=== PATIENT | male | born 1950 | race Caucasian/White ===

== ENCOUNTER 2025-02-05 09:17 | Emergency (ER) | payer MEDICARE, SELFPAY ==
[2025-02-05 09:32] VITALS: BP 156/72; PULSE 87; RESP 20; TEMP 35.9; O2SAT 93
--- NOTE | 2025-02-05 10:00 | RT.EKG_ITS ---
APPROVED REPORT Exam: Resting ECG Reason for Exam: SOB Patient Location: E HR:69 bpm ECG Measurements Heart Rate 69 AXIS OK 175 P 59 QRSd 76 QRS 53 QT 381 T 46 QTc 407 Conclusion Unknown rhythm, irregular rate...V-rate 57- 94, variation>10% Probable left atrial enlargement...P >50mS, <-0.10mV V1 No Occlusion OR
[2025-02-05 10:28] LABS: BE (Venous) 3 mmol/L (-2-3); HCO3 (Venous) 28 mmol/L (23-28); O2 Sat (Venous) 66 %; TCO2 (Venous) 25 mmol/L (24-29); pCO2 (Venous) 47 mmHg (41-51); pO2 (Venous) 33 mmHg
[2025-02-05 10:29] LABS: Abs Immature Grans 0.04 10^3/uL (0.0-0.06); HCT 47.8 % (40.0-50.0); HGB 16.2 g/dL (13.5-17.5); Immature Grans % 0.4 %; MCH 30.6 pg (27.0-33.0); MCHC 33.9 % (32.0-36.0); MCV 90 fL (80-95); MPV 10.1 fL (8.0-11.0); Platelet Count 194 10^3/uL (130-400); RBC 5.29 10^6/uL (4.36-5.78); RDW 13.3 % (11.8-14.1); RDW-SD 44.3 fL; WBC 9.34 10^3/uL (4.4-10.8)
[2025-02-05] MEDS: Albuterol/Ipratropium 3 ML UPD VIAL UPD (10:30)
[2025-02-05 10:38] LABS: COVID-19 PCR Negative (Negative); RSV PCR Negative (Negative)
[2025-02-05 10:55] LABS: ALT 19 U/L (16-63); AST 19 U/L (15-37); Albumin 3.6 g/dL (3.4-5.0); Alkaline Phosphatase 129 U/L (46-116); Anion Gap 8.1 mmol/L (3-11); BUN 13 mg/dL (7-18); Bilirubin, Total 0.9 mg/dL (0.2-1.0); CO2 28.9 mmol/L (21.0-32.0); Calcium 9.1 mg/dL (8.5-10.1); Chloride 98 mmol/L (98-107); Estimated GFR 62.29 (mL/min/1.73m2); Glucose 101 mg/dL (74-106); Lipase 29 U/L (<78); Magnesium 2.3 mg/dL (1.8-2.4); Potassium 4.3 mmol/L (3.5-5.1); Sodium 135 mmol/L (136-145); Total Protein 8.2 g/dL (6.4-8.2)
[2025-02-05 11:00] LABS: NT-proBNP 183 pg/mL (<300); Troponin I 8 ng/L (<or=76)
[2025-02-05 11:02] LABS: D-Dimer 896 ng/mlFEU (<500)
--- NOTE | 2025-02-05 11:26 | W.ED.GENAD ---
Discharge Plan Disposition Patient Disposition: Home Condition: Stable Discharge Details Clinical Impression: Shortness of breath Primary Care Provider: Unknown,Unknown ED Provider: Jesus Duke Home Meds and New Rx's Prescriptions: New prednisone 20 mg tablet 40 mg PO DAILY 5 Days Qty: 10 0RF azithromycin 250 mg tablet See Rx Instructions .ROUTE .COMPLEX Qty: 6 0RF Rx Instructions: For 250 mg dose pack: take 500 mg today (day 1), then 250 mg for 4 days (days 2-5) albuterol sulfate [Ventolin HFA] 90 mcg/actuation HFA aerosol inhaler 2 puff inhalation QID PRNQty: 6.7 0RF Discharge Instructions Instructions: Azithromycin (Systemic), Albuterol, Prednisone, Shortness of Breath, Adult ED Additional Instructions: You were seen in the emergency department for your progressive shortness of breath over many months, have a long-term history of smoking, you likely have an element of COPD that is undiagnosed. I am referring you to establish primary care. I have sent in prescriptions for an albuterol inhaler as well as a Z-Roman for antibiotics to treat any walking pneumonia or other similar bacterial pathology as well as a prednisone burst which should help with any inflammation in the lungs. Please follow-up with establishing primary care, he had some incidental findings of some liver cysts and adrenal nodules that need nonemergent MRI and follow-up. Referrals: [facility] [Provider Group] [facility] [Provider Group] Discharge Data Discharge Date/Time-TO BE ENTERED AT DEPARTURE: 02/05/25 13:49 HPI General Date/Time Provider Initiated Documentation: 02/05/25 09:28. HPI Narrative: 75 year-old male presents to ED today by POV/ambulating with a chief complaint of chronic cough, congestion with onset earlier this spring for months. Quality described as thought it was his normal seasonal allergies, but just hasn't gotten better- endorses thick yellow mucuous in the mornings, and shortness of breath with strenuous activities, no radiation to chest pain, nausea, vomiting, fever, bowel/urinary changes. Severity is described as mild to moderate. Palliating factors include nothing specific attempted. Provoking factors include nothing specific. Events leading up to the incident/Associated Symptoms: Patient has custodial smoking history, does not regularly go to the doctor. Patient not anticoagulated. Related Data Home Medications ?Medication ?Instructions ?Recorded ?Confirmed albuterol sulfate 90 mcg/actuation 2 puff inhalation QID PRN #6.7 02/05/25 aerosol inhaler (Ventolin HFA) grams azithromycin 250 mg tablet See Rx Instructions PO .COMPLEX #6 02/05/25 tabs prednisone 20 mg tablet 40 mg (2 x 20 mg) PO DAILY 5 days 02/05/25 #10 tabs Previous Rx's ?Medication ?Instructions ?Recorded albuterol sulfate 90 mcg/actuation 2 puff inhalation QID PRN #6.7 02/05/25 aerosol inhaler (Ventolin HFA) grams azithromycin 250 mg tablet See Rx Instructions PO .COMPLEX #6 02/05/25 tabs prednisone 20 mg tablet 40 mg (2 x 20 mg) PO DAILY 5 days 02/05/25 #10 tabs Allergies Allergy/AdvReac Type Severity Reaction Status Date / Time No Known Allergies Allergy Unverified 02/05/25 09:34 General Stated Complaint: SOB PINKY: 3 Review of Systems All systems reviewed & are unremarkable except as noted in HPI and below Exam Narrative Exam Narrative: GENERAL APPEARANCE: Well-nourished, non-toxic, awake and alert, atraumatic, no acute distress. SKIN: Warm, pink, dry, intact, without rashes/lesions/ulcerations. HEAD: Normocephalic, atraumatic, normal hair distribution for gender/age. EYES: Normal conjunctiva, no exudates on lids/lashes. ENT: Nares patent, no circumoral cyanosis, no facial swelling NECK: Supple, trachea midline, painless cervical ROM. LUNGS/CHEST: Lungs CTA bilaterally- no expiratory wheezing, non-labored respirations, increased A/P diameter, symmetrical expansion, no chest wall deformity HEART (CV/PV): Regular rate and rhythm without murmur, no peripheral edema, no JVD. ABDOMEN: Soft, non-distended, no guarding, nontender. MSK: Normal ROM, no swelling/deformity to bilateral UEs or LEs, moving all extremities without weakness, no cyanosis, spine midline without tenderness, normal curvature. NEURO: Mental Status AAOx4 - alert to person, place, time, events No facial droop, no forehead involvement. Motor: No focal weakness - strength 5/5 in bilateral UEs and LEs, proximal and distal, symmetric. Sensory: sensation intact to light touch globally. Gait normal: patient ambulated without ataxia into ED room. PSYCH: euthymic, cooperative, pleasant, appropriate speech Course Vital Signs Vital signs: Vital Signs Temperature 35.9 C L 02/05/25 09:32 Pulse 87 02/05/25 09:32 Respiratory Rate 20 02/05/25 09:32 Blood Pressure 156/72 H 02/05/25 09:32 Pulse Oximetry 93 02/05/25 09:32 Temperature 35.9 C L 02/05/25 09:32 Temperature Source Tympanic 02/05/25 09:32 Pulse 87 02/05/25 09:32 Respiratory Rate 20 02/05/25 09:32 Blood Pressure 156/72 H 02/05/25 09:32 Blood Pressure Position Sitting 02/05/25 09:32 Pulse Oximetry 93 02/05/25 09:32 Oxygen Delivery Method Room Air 02/05/25 09:32 Oxygen Flow Rate 0 02/05/25 09:32 Pain Level 0 02/05/25 09:32 Lab/Test Results Lab/Test Results: Laboratory Tests Range/Units 02/05/25 02/05/25 10:00 10:20 WBC (4.4-10.8) 10^3/uL 9.34 RBC (4.36-5.78) 10^6/uL 5.29 Hgb (13.5-17.5) g/dL 16.2 Hct (40.0-50.0) % 47.8 MCV (80-95) fL 90 MCH (27.0-33.0) pg 30.6 MCHC (32.0-36.0) % 33.9 RDW (11.8-14.1) % 13.3 Plt Count (130-400) 10^3/uL 194 MPV (8.0-11.0) fL 10.1 Immature Gran % % 0.4 Neutrophils % % 70.6 Lymphocytes % % 16.4 Monocytes % % 11.7 Eosinophils % % 0.2 Basophils % % 0.7 Nucleated RBC % (0.0-0.3) % 0.0 Absolute Neutrophils (1.2-6.7) 10^3/uL 6.59 Absolute Lymphocytes (1.2-3.4) 10^3/uL 1.53 Absolute Monocytes (0.1-0.8) 10^3/uL 1.09 H Absolute Eosinophils (0.0-0.7) 10^3/uL 0.02 Absolute Basophils (0.0-0.2) 10^3/uL 0.07 D-Dimer (<500) ng/mlFEU 896 H VBG pH (7.31-7.41) 7.38 VBG pCO2 (41-51) mmHg 47 VBG pO2 mmHg 33 VBG HCO3 (23-28) mmol/L 28 VBG Total CO2 (24-29) mmol/L 25 VBG O2 Saturation % 66 VBG Base Excess (-2-3) mmol/L 3 VBG Lactate (<or=2.0) mmol/L 1.4 Sodium (136-145) mmol/L 135 L Potassium (3.5-5.1) mmol/L 4.3 Chloride (98-107) mmol/L 98 Carbon Dioxide (21.0-32.0) mmol/L 28.9 Anion Gap (3-11) mmol/L 8.1 BUN (7-18) mg/dL 13 Creatinine (0.70-1.30) mg/dL 1.2 Est GFR (CKD-EPI 2020) (mL/min/1.73m2) 62.29 Glucose (74-106) mg/dL 101 Calcium (8.5-10.1) mg/dL 9.1 Magnesium (1.8-2.4) mg/dL 2.3 Total Bilirubin (0.2-1.0) mg/dL 0.9 AST (15-37) U/L 19 ALT (16-63) U/L 19 Alkaline Phosphatase (46-116) U/L 129 H Troponin I (<or=76) ng/L 8 NT-Pro-B Natriuret Pep (<300) pg/mL 183 Total Protein (6.4-8.2) g/dL 8.2 Albumin (3.4-5.0) g/dL 3.6 Lipase (<78) U/L 29 COVID-19 Source Nasopharynx SARS-CoV-2 (PCR) (Negative) Negative Influenza Type A (PCR) (Negative) Negative Influenza Type B (PCR) (Negative) Negative RSV (PCR) (Negative) Negative Medical Decision Making This dictation utilizes [id number] dictation software and may contain unedited grammatical errors. 75 year-old male presents to ED today by POV/ambulating with a chief complaint of chronic cough, congestion with onset earlier this spring for months. Quality described as thought it was his normal seasonal allergies, but just hasn't gotten better- endorses thick yellow mucuous in the mornings, and shortness of breath with strenuous activities, no radiation to chest pain, nausea, vomiting, fever, bowel/urinary changes. Severity is described as mild to moderate. Palliating factors include nothing specific attempted. Provoking factors include nothing specific. Events leading up to the incident/Associated Symptoms: Patient has custodial smoking history, does not regularly go to the doctor. Patients' medical history: Denies any major medical history. Family and social history: Long-term heavy smoker, denies IVDU, eats a normal diet. Pertinent exam findings / vital signs include lungs CTA, no expiratory wheezes, no respiratory distress, benign abdomen, neuro intact, nontoxic and afebrile. Differential / pathologies of concern include undiagnosed COPD, lung mass, PE, ACS less likely, PNA. Diagnostic studies of: - CBC, CMP, D-dimer, VBG, lactate, magnesium, BNP, serial troponins, lipase, respiratory PCR swab, CTA chest PE study, EKG. - CBC shows no acute abnormality - D-dimer 900 - VBG unremarkable - Lactate 1.4 - CMP without actionable abnormality - Serial troponins negative - BNP within normal limits - Lipase negative - Respiratory PCR swab negative - CTA chest PE study finds only incidental findings of adrenal nodules and hypodensities in the liver, I did set the patient up with PCP referral for these incidental findings - EKG shows sinus arrhythmia with P waves followed by narrow complex QRS with normal axis, no ST elevations or reciprocal depressions, no T wave abnormalities, normal intervals Interventions of: - DuoNeb treatment with significant improvement, inhaler to go home with as well as Rx for prednisone and azithromycin for empiric longstanding walking pneumonia in the setting of likely undiagnosed COPD. ED Course/Assessment/Plan: 75-year-old male with long-term smoking history presents with chronic cough, has not no treatment for months, improved with a DuoNeb likely has COPD to some extent with his long-term smoking history, I did provide him with prednisone and azithromycin to treat any walking pneumonia likely lingering, he is not in any respiratory distress he had incidental findings on CT which I referred him to PCP via referral list to establish care and surveilled these incidental findings. Findings not consistent with pneumonia, respiratory distress, ACS, sepsis, PE. Disposition of Shortness of Breath. Patient verbalized understanding of the plan and return to ED criteria and engaged in shared decision making. Medical Records Medical records reviewed: Yes I reviewed the patient's medical records. Imaging Data Radiologic Study: Attestation: I personally reviewed and interpreted this imaging study as follows: Imaging: CT Scan Radiologist's impression: EXAM: CT CHEST PE CTA CLINICAL HISTORY: elev d-dimer, SOB. TECHNIQUE: Imaging Protocol: Axial CT angiography was performed with multi-slice acquisition and multi-planar and/or 3D reconstructions. Lung Computer Aided Detection (CAD) was utilized. CONTRAST MATERIAL: Intravenous: Omnipaque 350 contrast volume:70 mL COMPARISON: No exams were available for comparison FINDINGS: Tracheobronchial tree: Patent where visualized. No bronchiectasis. There is mild bronchial wall thickening. Pulmonary parenchyma: Moderate centrilobular emphysematous changes are present. There are few calcified granuloma present. There are no focal consolidating infiltrates present. Pulmonary Arteries: No evidence of filling defect to suggest pulmonary emboli. Mediastinum and June: No dominant adenopathy or fluid collection. The esophagus is unremarkable. Visualized thyroid gland: Unremarkable. Pleura: No effusion or pneumothorax. Heart: The heart is not dilated. Coronary artery calcifications are present. No pericardial effusion. Aorta: The ascending thoracic aorta measures 3.9 x 3.8 cm. Atherosclerotic calcification is present. Upper abdomen: There are bilateral hypodense adrenal nodules likely reflecting adenomas. Nonemergent MRI of the adrenal glands is recommended for further characterization. There are few hypodensity seen within the liver which are indeterminate on this examination. Soft tissues: Unremarkable. Bones: Within normal limits for the patient's age.There is anterior wedging of T11. No acute abnormality is appreciated. IMPRESSION: 1. No evidence of a pulmonary embolism or thoracic aortic aneurysm. 2. Bilateral hypodense adrenal nodules. These likely reflect adenomas, however, nonemergent MRI of the abdomen is recommended for further characterization. 3. Indeterminate hypodensities in the liver. MRI of the abdomen would be useful for further characterization. Unexpected findings Lab Data Lab results reviewed: Yes I reviewed the patient's lab results. Labs: Laboratory Tests Range/Units 02/05/25 02/05/25 02/05/25 10:00 10:20 11:40 WBC (4.4-10.8) 10^3/uL 9.34 RBC (4.36-5.78) 10^6/uL 5.29 Hgb (13.5-17.5) g/dL 16.2 Hct (40.0-50.0) % 47.8 MCV (80-95) fL 90 MCH (27.0-33.0) pg 30.6 MCHC (32.0-36.0) % 33.9 RDW (11.8-14.1) % 13.3 Plt Count (130-400) 10^3/uL 194 MPV (8.0-11.0) fL 10.1 Immature Gran % % 0.4 Neutrophils % % 70.6 Lymphocytes % % 16.4 Monocytes % % 11.7 Eosinophils % % 0.2 Basophils % % 0.7 Nucleated RBC % (0.0-0.3) % 0.0 Absolute Neutrophils (1.2-6.7) 10^3/uL 6.59 Absolute Lymphocytes (1.2-3.4) 10^3/uL 1.53 Absolute Monocytes (0.1-0.8) 10^3/uL 1.09 H Absolute Eosinophils (0.0-0.7) 10^3/uL 0.02 Absolute Basophils (0.0-0.2) 10^3/uL 0.07 D-Dimer (<500) ng/mlFEU 896 H VBG pH (7.31-7.41) 7.38 VBG pCO2 (41-51) mmHg 47 VBG pO2 mmHg 33 VBG HCO3 (23-28) mmol/L 28 VBG Total CO2 (24-29) mmol/L 25 VBG O2 Saturation % 66 VBG Base Excess (-2-3) mmol/L 3 VBG Lactate (<or=2.0) mmol/L 1.4 Sodium (136-145) mmol/L 135 L Potassium (3.5-5.1) mmol/L 4.3 Chloride (98-107) mmol/L 98 Carbon Dioxide (21.0-32.0) mmol/L 28.9 Anion Gap (3-11) mmol/L 8.1 BUN (7-18) mg/dL 13 Creatinine (0.70-1.30) mg/dL 1.2 Est GFR (CKD-EPI 2020) (mL/min/1.73m2) 62.29 Glucose (74-106) mg/dL 101 Calcium (8.5-10.1) mg/dL 9.1 Magnesium (1.8-2.4) mg/dL 2.3 Total Bilirubin (0.2-1.0) mg/dL 0.9 AST (15-37) U/L 19 ALT (16-63) U/L 19 Alkaline Phosphatase (46-116) U/L 129 H Troponin I (<or=76) ng/L 8 8 NT-Pro-B Natriuret Pep (<300) pg/mL 183 Total Protein (6.4-8.2) g/dL 8.2 Albumin (3.4-5.0) g/dL 3.6 Lipase (<78) U/L 29 COVID-19 Source Nasopharynx SARS-CoV-2 (PCR) (Negative) Negative Influenza Type A (PCR) (Negative) Negative Influenza Type B (PCR) (Negative) Negative RSV (PCR) (Negative) Negative PFSH All Active Problems (Updated 02/05/25 @ 13:26 by FRANDY Bernard) Shortness of breath (Acute) Social History Smoking risk assessment performed?: No Do you feel safe at home: Yes Do you feel safe in your relationship?: Yes
[2025-02-05 12:19] LABS: Troponin I 8 ng/L (<or=76)
--- NOTE | 2025-02-05 12:40 | DI.CT_ITS ---
Exam(s) CT CHEST PE CTA EXAM: CT CHEST PE CTA CLINICAL HISTORY: elev d-dimer, SOB. TECHNIQUE: Imaging Protocol: Axial CT angiography was performed with multi- slice acquisition and multi-planar and/or 3D reconstructions. Lung Computer Aided Detection (CAD) was utilized. CONTRAST MATERIAL: Intravenous: Omnipaque 350 contrast volume:70 mL COMPARISON: No exams were available for comparison FINDINGS: Tracheobronchial tree: Patent where visualized. No bronchiectasis. There is mild bronchial wall thickening. Pulmonary parenchyma: Moderate centrilobular emphysematous changes are present. There are few calcified granuloma present. There are no focal consolidating infiltrates present. Pulmonary Arteries: No evidence of filling defect to suggest pulmonary emboli. Mediastinum and June: No dominant adenopathy or fluid collection. The esophagus is unremarkable. Visualized thyroid gland: Unremarkable. Pleura: No effusion or pneumothorax. Heart: The heart is not dilated. Coronary artery calcifications are present. No pericardial effusion. Aorta: The ascending thoracic aorta measures 3.9 x 3.8 cm. Atherosclerotic calcification is present. Upper abdomen: There are bilateral hypodense adrenal nodules likely reflecting adenomas. Nonemergent MRI of the adrenal glands is recommended for further characterization. There are few hypodensity seen within the liver which are indeterminate on this examination. Soft tissues: Unremarkable. Bones: Within normal limits for the patient's age.There is anterior wedging of T11. No acute abnormality is appreciated. IMPRESSION: 1. No evidence of a pulmonary embolism or thoracic aortic aneurysm. 2. Bilateral hypodense adrenal nodules. These likely reflect adenomas, however, nonemergent MRI of the abdomen is recommended for further characterization. 3. Indeterminate hypodensities in the liver. MRI of the abdomen would be useful for further characterization. Unexpected findings RADIATION DOSE DELIVERED: 63.9mGy.cm Total DLP DATA REPOSITORY: All CT scans at this facility are submitted to the National Radiology Data Registry (NRDR) Dose Index Registry (DIR) with the [employer] ([employer]). RADIATION OPTIMIZATION: All CT scans at this facility use at least one of these dose optimization techniques: automated exposure control; mA and/or kV adjustment per patient size (includes targeted exams where dose is matched to clinical indication); or iterative reconstruction.
[2025-02-05] MEDS: Omnipaque 350 MG/ML 100 ML BTL IJ (12:41)
[2025-02-05] MEDS: Normal Saline Flush 10 ML SYR IVP (12:41)
[2025-02-05] MEDS: Normal Saline - Diluent 50 ML VIAL IJ (12:41)
[2025-02-05 13:48] VITALS: BP 170/103; PULSE 76; RESP 10; O2SAT 93
--- NOTE | 2025-02-16 10:14 | W.ED.FU ---
Date of service: 02/16/25 Time of Service: 10:14 Follow Up Plan: Attempted to contact patient by his listed phone number to verify that he had arrange for follow-up PCP visit, as well as the importance of follow-up imaging for liver cyst and adrenal cyst noted on imaging,. after his emergency department visit on 7. Patient did not answer, message was left for him instructing him to call the emergency department for further instruction
== END 2025-02-05 13:49 | disposition home or self-care (01) ==
PROVIDERS: Emergency Provider Physician Assistant
DX: R06.02 Shortness of breath (principal); R09.89 Other specified symptoms and signs involving the circulatory and respiratory systems
CPT/HCPCS: 99284; 99285; 36415; 71275; 80053; 82805; 83690; 87637; 93005; 83605; 83735; 83880; 84484; 85025; 85379; 93010; J3490; J7620